=== PATIENT | male | born 1940 | race Caucasian/White ===

== ENCOUNTER → 2016-03-06 | Outpatient (CLI) | payer OTHER ==
[~2016-03-06] MED LIST: ACYC-65 PO; LPTUNK
--- NOTE | 2016-03-06 18:38 | DIAGNOSTIC IMAGING REPORT ---
ULTRASOUND VENOUS DOPPLER ULTRASOUND OF THE RIGHT LOWER EXTREMITY CLINICAL HISTORY: Right leg pain and swelling COMPARISON STUDY: No previous studies for comparison. FINDINGS: Real-time and color flow Doppler imaging were performed. Flow was seen within the femoral, popliteal and calf veins with no intraluminal thrombus demonstrated. The saphenous vein is patent. IMPRESSION: No evidence of right lower extremity DVT Electronically signed by: Milton Kay M.D. 03/06/2016 6:36 PM Dictated Date/Time: 03/06/2016 6:35 PM
== END | disposition home or self-care (01) ==
LOC: C.ULTR 16:48
PROVIDERS: ATTEND Orthopaedic Surgery
DX: M79.604 Pain in right leg (principal)

== ENCOUNTER → 2017-01-19 | Outpatient (CLI) | payer OTHER ==
--- NOTE | 2017-01-19 08:59 | DIAGNOSTIC IMAGING REPORT ---
(TESTICULAR) SCROTUM-CONT CLINICAL HISTORY: 76 years-old Male with R68.89 Abnormal testicular exam. Acute scrotal pain COMPARISON STUDY: CT abdomen and pelvis 08/31/2011 TECHNIQUE: Real-time, grayscale, and color Doppler sonography of the testes and scrotum is performed. Images are reviewed in the transverse and longitudinal planes. FINDINGS: RIGHT HEMISCROTUM: The right testis measures 4.3 x 2.0 x 3.7 cm and the parenchyma appears unremarkable with note made of a prominent rete testes. No intratesticular mass is seen. Prominent cystic structures are seen adjacent to the right testicle, largest of which measures 5.5 x 2.4 x 3.8 cm. Normal-appearing arterial inflow is present within the right testicle. The right epididymal head appears normal. No varicocele or hydrocele is identified. LEFT HEMISCROTUM: The left testis measures 4.1 x 1.8 x 2.9 cm and the parenchyma appears unremarkable with note made of a prominent rete testes. No intratesticular mass is seen. Prominent cystic structures are seen adjacent to the left testicle as well, largest of which measures up to 1.4 x 1.2 x 0.7 cm. Normal-appearing arterial inflow is present within the left testicle. The left epididymal head appears normal. No varicocele or hydrocele is identified. IMPRESSION: 1. Prominence of the bilateral testes with otherwise unremarkable sonographic appearance of the bilateral testicles. No evidence of intratesticular mass or torsion. 2. No varicocele or hydrocele identified. 3. Prominent benign-appearing paratesticular cystic structures are seen bilaterally as above, largest on the right measuring up to 5.5 cm. Differential consideration would include scrotal tunica cysts. The above report was generated using voice recognition software. It may contain grammatical, syntax or spelling errors. Electronically signed by: Maurice Boston M.D. 01/19/2017 8:58 AM Dictated Date/Time: 01/19/2017 8:50 AM
== END | disposition home or self-care (01) ==
LOC: C.ULTR 08:08
PROVIDERS: ATTEND Internal Medicine
DX: R68.89 Other general symptoms and signs (principal)

== ENCOUNTER → 2017-09-22 | Outpatient (CLI) | payer OTHER | END | disposition home or self-care (01) | LOC: C.LABBFT 14:13 | PROVIDERS: ATTEND Orthopaedic Surgery | DX: M25.411 Effusion, right shoulder (principal) ==